=== PATIENT | female | born 1995 | race African-American/Black ===

== ENCOUNTER 2016-10-07 10:56 | Emergency (ER) | payer BC ==
[2016-10-07 11:47] VITALS: BP 116/97
--- NOTE | 2016-10-07 12:06 | UC ---
Dental HPI - HPI Summary HPI Summary: Had wisdom teeth removed about 10 days ago. past 3-4 days has had swelling in right lower jaw, no fevers seen Dr. Franks who rx amoxicillin on swelling is worse and now cannot open mouth completely - History of Current Complaint Chief Complaint: UCDentalProblem Stated Complaint: DENTAL PAIN Time Seen by Provider: 10/07/16 11:45 Hx Obtained From: Patient Hx Last Menstrual Period: 10/06/16 ?: No Onset/Duration: Gradual Onset, Lasting Days, Worse Since - past 3 days Severity: Moderate Pain Intensity: 7 Pain Scale Used: 0-10 Numeric Aggravating: Chewing Alleviating: Nothing Related History: Swelling - Allergies/Home Medications Allergies/Adverse Reactions: Allergies Allergy/AdvReac Type Severity Reaction Status Date / Time polymyxin B eye drops Allergy See Comment Uncoded 10/07/16 11:47 Home Medications: Home Medications Acetaminophen TAB* [Tylenol TAB*] 650 mg PO TID PRN 10/07/16 [History Confirmed 10/07/16] Amoxicillin CAP* [Amoxicillin 500 MG CAP*] 500 mg PO TID 10/07/16 [History Confirmed 10/07/16] PMH/Surg Hx/FS Hx/Imm Hx Previously Healthy: Yes - Surgical History Surgical History: Yes Surgery Procedure, Year, and Place: RIGHT ANKLE SURGERIES 12/2014 AND 09/2015 - Family History Known Family History: Positive: None Negative: Blood Disorder Family History: no medical issues in family lineage - Social History Occupation: Employed Full-time Lives: With Family Alcohol Use: None Substance Use Type: None Smoking Status (MU): Never Smoked Tobacco Have You Smoked in the Last Year: No Review of Systems Constitutional: Negative Skin: Negative Eyes: Negative ENT: Dental Pain - and swelling right lower jaw Respiratory: Negative Cardiovascular: Negative Gastrointestinal: Negative Genitourinary: Negative Motor: Negative Neurovascular: Negative Musculoskeletal: Negative Neurological: Negative Psychological: Negative All Other Systems Reviewed And Are Negative: Yes Physical Exam Triage Information Reviewed: Yes Appearance: Well-Appearing, Well-Nourished, Pain Distress Vital Signs: Initial Vital Signs Temp 98.1 F 10/07/16 11:42 Pulse 85 10/07/16 11:42 Resp 16 10/07/16 11:42 BP 116/97 10/07/16 11:42 Pulse Ox 96 10/07/16 11:42 Vital Signs Reviewed: Yes Eye Exam: Normal Eyes: Positive: Conjunctiva Clear ENT Exam: Normal ENT: Positive: Normal ENT inspection, Hearing grossly normal, Pharynx normal, Nasal congestion, Nasal drainage, TMs normal, Trismus. Negative: Tonsillar swelling, Tonsillar exudate, Muffled/hoarse voice Dental Exam: Normal Dental: Positive: Abscess @ - right lower jaw, Cervical Lymphadenopathy Neck exam: Normal Neck: Positive: Supple, Nontender, Enlarged Nodes @ Respiratory Exam: Normal Respiratory: Positive: Chest non-tender, Lungs clear, Normal breath sounds, No respiratory distress, No accessory muscle use Cardiovascular Exam: Normal Cardiovascular: Positive: RRR, No Murmur, Pulses Normal, Brisk Capillary Refill Abdominal Exam: Normal Musculoskeletal Exam: Normal Musculoskeletal: Positive: Strength Intact, ROM Intact, No Edema Neurological Exam: Normal Neurological: Positive: Alert, Muscle Tone Normal Psychological Exam: Normal Psychological: Positive: Normal Response To Family, Age Appropriate Behavior Skin Exam: Normal Dental Complaint Course/Dx - Course Course Of Treatment: transfer to [facility] for higher level of care; - Differential Dx/Diagnosis Differential Diagnosis/Dx: Dental Abscess, Dental Caries, Odontogenic Pain, Tonsillitis Provider Diagnoses: right lower jaw abscess Discharge - Discharge Plan Condition: Stable Disposition: ADMITTED TO [facility] Referrals: Dinesh Prajapati MD [Primary Care Provider] -
== END 2016-10-07 12:03 | disposition short-term general hospital (02) ==
LOC: UCEAST 10:56
DX: M27.2 Inflammatory conditions of jaws (principal)
CPT/HCPCS: 99212; G0463

== ENCOUNTER → 2016-10-07 12:36 | Emergency (ER) | payer BC ==
[~2016-10-07 12:36] MED LIST: Clindamycin 600 MG IVPREMIX(* 600 MG/50 ML SDV IV ONE; Iohexol 300* (CONTRAST) 10 ML SDV IV ONE; Ketorolac INJ* 30 MG/ML 1 ML VIAL IV ONE; Morphine INJ* 2 MG/ML 1 ML SYRINGE IV ONE; NS 0.9% 1000 ML* 1,000 ML IV ONE; metroNIDAZOLE IV 500 MG/100ML* 500 MG/100 ML BAG IVPB ONE
[2016-10-07 13:52] LABS: Hematocrit 41 % (35-47); Hemoglobin 13.3 g/dl (12.0-16.0); Mean Corpuscular HGB Conc 33 g/dl (31-36); Mean Corpuscular Hemoglobin 25 pg (27-31); Mean Corpuscular Volume 76 fL (80-97); Mean Platelet Volume 9 um3 (7.4-10.4); Red Blood Count 5.36 10^6/ul (4.0-5.4); Red Cell Distribution Width 15 % (10.5-15); White Blood Count 10.2 10^3/ul (3.5-10.8)
[2016-10-07 14:37] LABS: ALT 13 U/L (7-52); AST 17 U/L (13-39); Albumin 3.7 g/dL (3.2-5.2); Alkaline Phosphatase 87 U/L (34-104); Anion Gap 8 mmol/L (2-11); BUN/Creatinine Ratio 22.6 (8-20); Blood Urea Nitrogen 12 mg/dL (6-24); CO2 Carbon Dioxide 23 mmol/L (22-32); Calcium 9.2 mg/dL (8.6-10.3); Chloride 105 mmol/L (101-111); EGFR African American 187.3 (>60); EGFR Non-African American 145.6 (>60); Globulin 3.8 g/dL (2-4); Glucose 106 mg/dL (70-100); Potassium 3.5 mmol/L (3.5-5.0); Sodium 136 mmol/L (133-145); Total Protein 7.5 g/dL (6.4-8.9)
[2016-10-07 15:02] LABS: Urine Bacteria Absent (Absent); Urine Bilirubin Negative (Negative); Urine Glucose Negative (Negative); Urine Nitrite Negative (Negative)
--- NOTE | 2016-10-07 15:06 | ED ---
Throat Pain/Nasal Congestion - HPI Summary HPI Summary: 21 female presents with complaints of dental swelling and pain that began ~3 days ago. Patient is accompanied by father. Both state patient had her wisdom teeth out 1 month ago without complication howeverdeveloped swelling and pain of her lower right jaw that began 3 days ago and has continued to worsen. Patient saw her oral surgeon who cleaned out and stated the wisdom teeth procedure had cleared and he thought it was a start of a dental infection. She was given amoxicillin and has taken 4 pills without improvement. States the swelling has made her unable to open her mouth completely. Denies fever/chills and discharge. Admits to having cold symptoms over the past week. Denies difficulty swallowing and difficult breathing. No other complaints and no PMHx. Has been also taking ibuprofen for pain and inflammation without much relief. - History of Current Complaint Chief Complaint: EDDentalPain Time Seen by Provider: 10/07/16 12:54 Hx Obtained From: Patient, Family/Door Manager - father Onset/Duration: Sudden Onset, Lasting Days, Still Present, Worse Since Severity: Moderate Associated Signs And Symptoms: Positive: Sinus Discomfort, Nasal Discharge Cough: Nonproductive - Epiglottits Risk Factors Epiglottis Risk Factors: Negative - Allergies/Home Medications Allergies/Adverse Reactions: Allergies Allergy/AdvReac Type Severity Reaction Status Date / Time polymyxin B eye drops Allergy See Comment Uncoded 10/07/16 11:47 PMH/Surg Hx/FS Hx/Imm Hx Endocrine/Hematology History: Denies: Hx Diabetes, Hx Thyroid Disease Cardiovascular History: Denies: Hx Hypertension, Hx Pacemaker/ICD Respiratory History: Reports: Hx Asthma - well controlled Denies: Hx Chronic Obstructive Pulmonary Disease (COPD) GI History: Denies: Hx Ulcer Musculoskeletal History: Denies: Hx Rheumatoid Arthritis, Hx Osteoporosis Sensory History: Denies: Hx Hearing Aid Psychiatric History: Denies: Hx Eating Disorder, Hx Panic Disorder, Hx of Violent Episodes Against Others - Surgical History Surgery Procedure, Year, and Place: RIGHT ANKLE SURGERIES 12/2014 AND 09/2015 - Immunization History Immunizations Up to Date: Yes Infectious Disease History: No Infectious Disease History: Denies: Hx Clostridium Difficile, Hx Hepatitis, Hx Human Immunodeficiency Virus (HIV), Hx of Known/Suspected MRSA, Hx Shingles, Hx Tuberculosis, Hx Known/ Suspected VRE, Hx Known/Suspected VRSA, History Other Infectious Disease, Traveled Outside the [place] in Last 30 Days - Family History Known Family History: Positive: None Negative: Blood Disorder - Social History Alcohol Use: None Substance Use Type: Reports: None Smoking Status (MU): Never Smoked Tobacco Have You Smoked in the Last Year: No Review of Systems Constitutional: Negative Eyes: Negative Positive: Dental Pain, Nasal Discharge Cardiovascular: Negative Positive: Cough Gastrointestinal: Negative Musculoskeletal: Negative Skin: Negative Neurological: Negative All Other Systems Reviewed And Are Negative: Yes Physical Exam Triage Information Reviewed: Yes Vital Signs On Initial Exam: Initial Vitals Temp Pulse Resp BP Pulse Ox 97.5 F 114 17 141/88 99 10/07/16 12:38 10/07/16 12:38 10/07/16 12:38 10/07/16 12:38 10/07/16 12:38 tachycardia noted Vital Signs Reviewed: Yes Appearance: Positive: Well-Appearing, No Pain Distress, Well-Nourished Skin: Positive: Warm, Skin Color Reflects Adequate Perfusion, Dry, Other - swelling of right cheek. Negative: Numb, Cyanosis @ Head/Face: Positive: Other - significant swelling/edema of right cheek and under jawline Eyes: Positive: Normal, Conjunctiva Clear ENT: Positive: Hearing grossly normal, Pharynx normal, TMs normal, Trismus, Other - airway patent. Negative: Tonsillar swelling, Tonsillar exudate, Muffled /hoarse voice Dental: Positive: Cervical Lymphadenopathy Neck: Positive: Supple, Nontender Respiratory/Lung Sounds: Positive: Clear to Auscultation, Breath Sounds Present. Negative: Decreased Breath Sounds, Rales, Rhonchi, Tracheal Deviation , Wheezes Cardiovascular: Positive: Normal, RRR, Pulses are Symmetrical in both Upper and Lower Extremities. Negative: Murmur, Rub Abdomen Description: Positive: Nontender, Soft Bowel Sounds: Positive: Present Musculoskeletal: Positive: Normal, Strength/ROM Intact Neurological: Positive: Normal, Sensory/Motor Intact, Alert, Oriented to Person Place, Time, Normal Gait Psychiatric: Positive: Affect/Mood Appropriate AVPU Assessment: Alert - [place] Coma Scale Coma Scale Total: 15 Diagnostics - Vital Signs Vital Signs Temp Pulse Resp BP Pulse Ox 10/07/16 12:42 97.8 F 110 17 141/88 99 10/07/16 12:38 97.5 F 114 17 141/88 99 - Laboratory Lab Results: Lab Results 10/07/16 10/07/16 10/07/16 Range/Units 13:30 13:30 13:30 WBC 10.2 (3.5-10.8) 10^3/ul RBC 5.36 (4.0-5.4) 10^6/ul Hgb 13.3 (12.0-16.0) g/dl Hct 41 (35-47) % MCV 76 L (80-97) fL MCH 25 L (27-31) pg MCHC 33 (31-36) g/dl RDW 15 (10.5-15) % Plt Count 241 (150-450) 10^3/ul MPV 9 (7.4-10.4) um3 Neut % (Auto) 72.5 (38-83) % Lymph % (Auto) 17.3 L (25-47) % [place] % (Auto) 5.8 (1-9) % Eos % (Auto) 3.6 (0-6) % Baso % (Auto) 0.8 (0-2) % Absolute Neuts (auto) 7.4 (1.5-7.7) 10^3/ul Absolute Lymphs (auto) 1.8 (1.0-4.8) 10^3/ul Absolute Monos (auto) 0.6 (0-0.8) 10^3/ul Absolute Eos (auto) 0.4 (0-0.6) 10^3/ul Absolute Basos (auto) 0.1 (0-0.2) 10^3/ul Absolute Nucleated RBC 0.01 10^3/ul Nucleated RBC % 0.1 Sodium 136 (133-145) mmol/L Potassium 3.5 (3.5-5.0) mmol/L Chloride 105 (101-111) mmol/L Carbon Dioxide 23 (22-32) mmol/L Anion Gap 8 (2-11) mmol/L BUN 12 (6-24) mg/dL Creatinine 0.53 (0.51-0.95) mg/dL Est GFR ( Amer) 187.3 (>60) Est GFR (Non-Af Amer) 145.6 (>60) BUN/Creatinine Ratio 22.6 H (8-20) Glucose 106 H (70-100) mg/dL Lactic Acid 1.2 (0.5-2.0) mmol/L Calcium 9.2 (8.6-10.3) mg/dL Total Bilirubin 0.30 (0.2-1.0) mg/dL AST 17 (13-39) U/L ALT 13 (7-52) U/L Alkaline Phosphatase 87 (34-104) U/L Total Protein 7.5 (6.4-8.9) g/dL Albumin 3.7 (3.2-5.2) g/dL Globulin 3.8 (2-4) g/dL Albumin/Globulin Ratio 1.0 (1-3) Beta HCG, Quant < 0.60 mIU/mL Urine Color Urine Appearance Urine pH (5-9) Ur Specific [place] (1.010-1.030) Urine Protein (Negative) Urine Ketones (Negative) Urine Blood (Negative) Urine Nitrate (Negative) Urine Bilirubin (Negative) Urine Urobilinogen (Negative) Ur Leukocyte Esterase (Negative) Urine WBC (Auto) (Absent) Urine RBC (Auto) (Absent) Ur Squamous Epith Cells (Absent) Urine Bacteria (Absent) Urine Glucose (Negative) 10/07/16 Range/Units 14:45 WBC (3.5-10.8) 10^3/ul RBC (4.0-5.4) 10^6/ul Hgb (12.0-16.0) g/dl Hct (35-47) % MCV (80-97) fL MCH (27-31) pg MCHC (31-36) g/dl RDW (10.5-15) % Plt Count (150-450) 10^3/ul MPV (7.4-10.4) um3 Neut % (Auto) (38-83) % Lymph % (Auto) (25-47) % [place] % (Auto) (1-9) % Eos % (Auto) (0-6) % Baso % (Auto) (0-2) % Absolute Neuts (auto) (1.5-7.7) 10^3/ul Absolute Lymphs (auto) (1.0-4.8) 10^3/ul Absolute Monos (auto) (0-0.8) 10^3/ul Absolute Eos (auto) (0-0.6) 10^3/ul Absolute Basos (auto) (0-0.2) 10^3/ul Absolute Nucleated RBC 10^3/ul Nucleated RBC % Sodium (133-145) mmol/L Potassium (3.5-5.0) mmol/L Chloride (101-111) mmol/L Carbon Dioxide (22-32) mmol/L Anion Gap (2-11) mmol/L BUN (6-24) mg/dL Creatinine (0.51-0.95) mg/dL Est GFR ( Amer) (>60) Est GFR (Non-Af Amer) (>60) BUN/Creatinine Ratio (8-20) Glucose (70-100) mg/dL Lactic Acid (0.5-2.0) mmol/L Calcium (8.6-10.3) mg/dL Total Bilirubin (0.2-1.0) mg/dL AST (13-39) U/L ALT (7-52) U/L Alkaline Phosphatase (34-104) U/L Total Protein (6.4-8.9) g/dL Albumin (3.2-5.2) g/dL Globulin (2-4) g/dL Albumin/Globulin Ratio (1-3) Beta HCG, Quant mIU/mL Urine Color Straw Urine Appearance Clear Urine pH 6.0 (5-9) Ur Specific [place] 1.008 L (1.010-1.030) Urine Protein 1+(30 mg/dl) H (Negative) Urine Ketones Negative (Negative) Urine Blood 3+ H (Negative) Urine Nitrate Negative (Negative) Urine Bilirubin Negative (Negative) Urine Urobilinogen Negative (Negative) Ur Leukocyte Esterase Negative (Negative) Urine WBC (Auto) Absent (Absent) Urine RBC (Auto) 3+(>10/hpf) H (Absent) Ur Squamous Epith Cells Present H (Absent) Urine Bacteria Absent (Absent) Urine Glucose Negative (Negative) Result Diagrams: 10/07/16 13:30 10/07/16 13:30 Lab Statement: Any lab studies that have been ordered have been reviewed, and results considered in the medical decision making process. EENT Course/Dx - Course Course Of Treatment: labs obtained and started clindamycin IV. also given toradol for pain and inflammation. no concern for difficulty breathing or swallowing at this time. is having trismus. due to failed outpatient therapy over the past 3 days and increasing swelling/worsening symptoms CT maxillo facial with contrast obtained. awaiting results. Patient's HPI and plan of action was discussed with patient and Ling Alicia PA-C as patient was signed out to her at 3:00pm. - Differential Diagnoses Differential Diagnoses: Dental Abscess, Dental Caries, Odontogenic Pain, Periodontic Abscess, URI/Bronchitis - Diagnoses Provider Diagnoses: Dental abscess Discharge - Discharge Plan Condition: Stable Disposition: HOME Discharge Disposition Comment: signed out to Ling Alicia PA-C at 3:00pm Prescriptions: Clindamycin Cap(NF) [Cleocin 300 mg Cap(NF)] 300 mg PO Q6H #28 cap HYDROcodone/ACETAMIN 5-325 MG* [[place] 5-325 TAB*] 1 tab PO Q4H PRN #12 tab MDD 6 PRN Reason: Pain Ondansetron ODT TAB* [Zofran 4 MG Odt TAB*] 4 mg PO Q6H PRN #20 tab.odt PRN Reason: Nausea Patient Education Materials: Dental Abscess (ED) Referrals: Natalie Abad MD [Primary Care Provider] - Additional Instructions: You have been diagnosed with dental pain with possible infection: Antibiotics as prescribed to you. Clindamycin 300mg four times daily for 7 days. To minimize the potential for gastrointestinal intolerance, Clindamycin should be taken at the start of a meal. If you have any questions about your medication, please contact us or ask your pharmacist. Salt water rinses several times per day will improve healing time. Ibuprofen 600mg three times daily with meals for discomfort. Bradford given for pain control. Take with food to prevent stomach upset. Follow up with a Dr Franks for routine care to prevent recurrence of infections. If fever, worsening pain or swelling develops, see your PCP, dentist or come back to the Emergency Department.
--- NOTE | 2016-10-07 15:20 | RAD ---
HISTORY: Dental abscess COMPARISONS: None TECHNIQUE: Multiple contiguous axial CT scans were obtained of the face with intravenous contrast, with coronal and sagittal multiplanar reformations. FINDINGS: BONES: There is no displaced fracture or dislocation. The orbital rim is intact. The zygomatic arch is intact. The pterygoid plates are intact. The patient appears to be status post extraction of the mandibular and maxillary molars. ORBITS: The globes are round. The optic nerves are symmetric. The extraocular musculature is normal. There is no post septal or intraconal inflammatory change. There is no retrobulbar hematoma. PARANASAL SINUSES: The paranasal sinuses are clear. BRAIN AND SOFT TISSUE: There is inflammatory change surrounding the alveolus of the last mandibular molar on the right. There is a small amount of subcutaneous gas with a small fluid collection measuring 1.1 cm x 0.3 cm in transverse dimension at the level of the angle of the mandible consistent with a small abscess. There is associated infiltrate change of the surrounding soft tissues OTHER: None. IMPRESSION: STATUS POST DENTAL EXTRACTION, WITH A SMALL LOCULATED FLUID COLLECTION AT THE LEVEL OF THE ANGLE OF THE RIGHT MANDIBLE ADJACENT TO THE ALVEOLUS OF THE LAST MANDIBULAR MOLAR, CONSISTENT WITH A SMALL ODONTOGENIC ABSCESS
--- NOTE | 2016-10-07 16:31 | PN ---
Progress Note - Progress Note Date of Service: 10/07/16 Note: Signed out from Priti Norris PA-C at 3pm. Spoke with Dr. Franks at 3: 45pm for consult. Suggested addition of IV Flagyl. Will follow up in office on Sunday morning at 8am for abscess drainage. Patient and father OK with plan. Pain management given with rx to home. Trismus improved after pain management per patient. Denies difficulty swallowing or breathing. States there is a "funny taste" in mouth which is bitter. This possibly d/t drainage of the loculated fluid pocket and encouraged continuation of salt water rinses and jet irrigation to the wound 3x daily and after eating until follow up.
[2016-10-07 18:22] VITALS: BP 131/58
== END | disposition home or self-care (01) ==
LOC: ED 12:36
DX: K04.7 Periapical abscess without sinus (principal)
CPT/HCPCS: 36415; 70487; 80053; 81003; 81015; 83605; 84702; 85025; 96374; 99282; J1885; J2270; Q9967

== ENCOUNTER 2018-05-27 23:53 | Emergency (ER) | payer BC ==
[2018-05-28] MEDS ORDERED: Ibuprofen TAB* 600 MG PO ONE (00:27)
--- NOTE | 2018-05-28 00:56 | ED ---
Lower Extremity - HPI Summary HPI Summary: Patient complains of left knee and left madrigal pain status post fall today. Denies any other injury, pain or symptoms. - History of Current Complaint Chief Complaint: EDExtremityLower Stated Complaint: FALL Time Seen by Provider: 05/28/18 00:24 Hx Obtained From: Patient, Family/Chip Mucker Hx Last Menstrual Period: 10/06/16 Mechanism Of Injury: Fall From A Standing Position Onset of Pain: Immediate Onset/Duration: Hours Severity Initially: Moderate Severity Currently: Moderate Pain Intensity: 7 Pain Scale Used: 0-10 Numeric Timing: Constant Character Of Pain: Aching, Throbbing Associated Signs And Symptoms: Positive: Knee Pain Aggravating Factor(s): Ambulation, Weight Bearing Alleviating Factor(s): Rest Able to Bear Weight: Yes - Allergies/Home Medications Allergies/Adverse Reactions: Allergies Allergy/AdvReac Type Severity Reaction Status Date / Time polymyxin B eye drops Allergy See Comment Uncoded 05/28/18 00:01 Home Medications: Home Medications NK [No Home Medications Reported] 05/28/18 [History Confirmed 05/28/18] PMH/Surg Hx/FS Hx/Imm Hx Endocrine/Hematology History: Denies: Hx Diabetes, Hx Thyroid Disease Cardiovascular History: Denies: Hx Hypertension, Hx Pacemaker/ICD Respiratory History: Reports: Hx Asthma - well controlled Denies: Hx Chronic Obstructive Pulmonary Disease (COPD) GI History: Denies: Hx Ulcer Musculoskeletal History: Denies: Hx Rheumatoid Arthritis, Hx Osteoporosis Sensory History: Denies: Hx Hearing Aid Opthamlomology History: Denies: Hx Eye Prosthesis EENT History: Denies: Hx Deafness Neurological History: Denies: Hx CVA Psychiatric History: Denies: Hx Eating Disorder, Hx Panic Disorder, Hx of Violent Episodes Against Others - Surgical History Surgery Procedure, Year, and Place: RIGHT ANKLE SURGERIES 12/2014 AND 09/2015 Infectious Disease History: No Infectious Disease History: Denies: Hx Clostridium Difficile, Hx Hepatitis, Hx Human Immunodeficiency Virus (HIV), Hx of Known/Suspected MRSA, Hx Shingles, Hx Tuberculosis, Hx Known/ Suspected VRE, Hx Known/Suspected VRSA, History Other Infectious Disease, Traveled Outside the [place] in Last 30 Days - Family History Known Family History: Positive: None Negative: Blood Disorder Family History: no medical issues in family lineage - Social History Alcohol Use: None Substance Use Type: Reports: None Smoking Status (MU): Never Smoked Tobacco Have You Smoked in the Last Year: No Review of Systems Constitutional: Negative Eyes: Negative ENT: Negative Cardiovascular: Negative Respiratory: Negative Gastrointestinal: Negative Genitourinary: Negative Musculoskeletal: Other Skin: Negative Neurological: Negative Psychological: Normal All Other Systems Reviewed And Are Negative: Yes Physical Exam - Summary Physical Exam Summary: No ecchymosis, erythema, swelling, deformity noted to left foot, left ankle, left lower extremity, left knee. Full range of motion of left knee with minimal pain. Nontender. PMS intact distally. Triage Information Reviewed: Yes Vital Signs On Initial Exam: Initial Vitals Temp Pulse Resp BP Pulse Ox 99.3 F 104 16 128/95 97 05/27/18 23:57 05/27/18 23:57 05/27/18 23:57 05/27/18 23:57 05/27/18 23:57 Vital Signs Reviewed: Yes Appearance: Positive: Well-Appearing Skin: Positive: Warm Head/Face: Positive: Normal Head/Face Inspection Eyes: Positive: Normal Neck: Positive: Supple Respiratory/Lung Sounds: Positive: Clear to Auscultation Cardiovascular: Positive: Normal Abdomen Description: Positive: Nontender Musculoskeletal: Positive: Normal Neurological: Positive: Normal Psychiatric: Positive: Normal AVPU Assessment: Alert - [place] Coma Scale Best Eye Response: 4 - Spontaneous Best Motor Response: 6 - Obeys Commands Best Verbal Response: 5 - Oriented Coma Scale Total: 15 Diagnostics - Vital Signs Vital Signs Temp Pulse Resp BP Pulse Ox 05/27/18 23:57 99.3 F 104 16 128/95 97 - Laboratory Lab Statement: Any lab studies that have been ordered have been reviewed, and results considered in the medical decision making process. Lower Extremity Course/Dx - Course Course Of Treatment: Patient complains of left knee and left madrigal pain status post fall today. Denies any other injury, pain or symptoms. Physical exam:No ecchymosis, erythema, swelling, deformity noted to left foot, left ankle, left lower extremity, left knee. Full range of motion of left knee with minimal pain. Nontender. PMS intact distally. Vital signs within normal limits. X- ray left lower extremity negative for acute process in knee or tib-fib. Recommend ice and ibuprofen for pain. - Diagnoses Provider Diagnoses: Contusion Discharge - Sign-Out/Discharge Documenting (check all that apply): Patient Departure Patient Received Moderate/Deep Sedation with Procedure: No - Discharge Plan Condition: Stable Disposition: HOME Patient Education Materials: Contusion in Children (ED) Referrals: Natalie Abad MD [Primary Care Provider] - Additional Instructions: Ice and ibuprofen 600 mg every 6 hours for pain. Return to the ED for any new or worsening symptoms. - Billing Disposition and Condition Condition: STABLE Disposition: Home
[2018-05-28 01:13] VITALS: BP 110/59
== END 2018-05-28 01:10 | disposition home or self-care (01) ==
LOC: ED 23:53
DX: S80.02XA Contusion of left knee, initial encounter (principal); W19.XXXA Unspecified fall, initial encounter; Y92.9 Unspecified place or not applicable; Z88.8 Allergy status to other drugs, medicaments and biological substances
CPT/HCPCS: 99282; A9270-GY